=== PATIENT | male | born 1945 | race Hispanic/Latino ===

== ENCOUNTER → 2018-02-13 | Outpatient (CLI) | payer OTHER ==
[~2018-02-13] MED LIST: ASPI-555 PO; ATOR40TA71 PO; CLOP75TA14 PO; FERR325T21 PO; FOLI0.8T PO; FURO40TA5 PO; HYDR500C2 PO; METO50TA18 PO; OMEP20CA10 PO; POTA20TA82 PO; SPIR25TA6 PO
== END | disposition home or self-care (01) ==
LOC: SHCH 11:47
PROVIDERS: ATTEND Internal Medicine Cardiovascular Disease
DX: I25.2 Old myocardial infarction (principal); R60.9 Edema, unspecified; I35.8 Other nonrheumatic aortic valve disorders
CPT/HCPCS: 93306

== ENCOUNTER 2018-06-10 17:33 | Inpatient (IN) | payer OTHER ==
[~2018-06-10] VITALS: Ht 170.2 cm; Wt 78.1 kg
[~2018-06-10 17:33] MED LIST changes: +OMEP-50 PO; -OMEP20CA10 PO
[2018-06-10] MEDS ORDERED: FUROSEMIDE 10 MG/ML 2ML VIAL ONE (18:00)
[2018-06-10 18:22] LABS: BASOPHILS % (AUTO) 0.4 % (0.0-5.0); EOSINOPHILS % (AUTO) 1.6 % (0.0-8.0); HEMATOCRIT 26.5 % (42-54); LYMPHOCYTES % (AUTO) 5.9 % (21.0-51.0); MEAN CORPUSCULAR HEMOGLOBIN 17.6 pg (27.0-33.0); MEAN CORPUSCULAR HGB CONC 30.9 g/dL (32.0-36.0); MONOCYTES % (AUTO) 7.5 % (3.0-13.0); NEUTROPHILS % (AUTO) 84.6 % (40.0-77.0); NUCLEATED RED BLOOD CELLS 0.1 % (0.0-0.19); RED BLOOD CELL COUNT(AUTO) 4.66 MIL/uL (4.50-6.20); RED CELL DISTRIBUTION WIDTH 19.8 % (11.0-15.5); WHITE BLOOD COUNT (AUTO) 20.5 K/uL (4.8-10.8)
[2018-06-10 18:29] LABS: PLATELET COUNT (AUTO) 939 K/uL (130-400)
[2018-06-10 18:34] LABS: INR 1.3 (0.85-1.15); PARTIAL THROMBOPLASTIN TIME 37.6 SEC (26.3-35.5); PROTHROMBIN TIME 13.6 SEC (9.6-11.6)
[2018-06-10 18:43] LABS: B-TYPE NATRIURETIC PEPTIDE 550 pg/mL (0-100)
[2018-06-10 18:45] LABS: ALBUMIN 2.7 g/dL (3.5-5.0); BILIRUBIN,TOTAL 3.6 mg/dL (0.2-1.0); CREATININE 1.4 mg/dL (0.5-1.5); POTASSIUM 5.5 mmol/L (3.5-5.1); TOTAL PROTEIN, SERUM 6.8 g/dL (6.0-8.3)
[2018-06-10 18:56] LABS: PLATELET MORPHOLOGY COMMENT MARKED INCREASE
[2018-06-10 19:28] LABS: APPEARANCE,URINE Clear (CLEAR); BILIRUBIN,URINE Small (NEGATIVE); COLOR,URINE Dark Yellow (YELLOW); GLUCOSE, URINE (UA) Negative (NEGATIVE); KETONES,URINE Negative (NEGATIVE); LEUKOCYTE ESTERASE ,URINE Negative (NEGATIVE); NITRATE,URINE Negative (NEGATIVE); OCCULT BLOOD,URINE Negative (NEGATIVE); PROTEIN,URINE Negative (NEGATIVE)
[2018-06-10] MEDS ORDERED: ACETAMINOPHEN 325 MG TAB PO PRN (19:30)
[2018-06-10] MEDS ORDERED: ONDANSETRON HCL 4 MG/2 ML VIAL IV PRN (19:30)
[2018-06-10] MEDS ORDERED: ACETAMINOPHEN EXTRA STRENGTH 500 MG TABLET PO PRN (19:30)
[2018-06-10] MEDS ORDERED: GLUCAGON 1MG KIT 1 MG ML IM PRN (19:30)
[2018-06-10] MEDS ORDERED: DEXTROSE 50%-WATER 50 ML DISP.SYRIN IV PRN (19:30)
[2018-06-10] MEDS ORDERED: SODIUM CHLORIDE 1,000 MG TAB PO ONE (19:30)
[2018-06-10] MEDS ORDERED: LORAZEPAM 2 MG/ML 1 ML VIAL IVP PRN ×4 (19:30)
[2018-06-10] MEDS ORDERED: PROMETHAZINE HCL 25 MG TABLET PO PRN (19:30)
[2018-06-10] MEDS ORDERED: CHLORDIAZEPOXIDE HCL 25 MG CAP PO PRN ×4 (19:30)
[2018-06-10] MEDS ORDERED: NITROGLYCERIN 0.4 MG SL TAB SL PRN (19:30)
[2018-06-10] MEDS ORDERED: MAGNESIUM 2GM PREMIX 50ML 50 ML IV PRN (19:30)
[2018-06-10 19:35] LABS: AMPHET/METH SCREEN,URINE NEGATIVE (NEGATIVE); BARBITURATE SCREEN, URINE NEGATIVE (NEGATIVE); BENZODIAZEPINES SCREEN,URINE NEGATIVE (NEGATIVE); CANNABINOID SCREEN,URINE NEGATIVE (NEGATIVE); COCAINE SCREEN,URINE NEGATIVE (NEGATIVE); OPIATE SCREEN,URINE NEGATIVE (NEGATIVE); PHENCYCLIDINE SCREEN,URINE NEGATIVE (NEGATIVE)
[2018-06-10] MEDS ORDERED: LACTULOSE 20 GM/30 ML UDCUP PO ONE (19:45)
[2018-06-10] MEDS ORDERED: ZOSYN 3.375GM+NS 50ML 50 ML IV SCH (19:45)
[2018-06-10 19:49] LABS: PHOSPHORUS 4.8 mg/dL (2.5-4.9)
[2018-06-10 19:51] LABS: MUCUS,URINE Rare LPF (None Seen)
[2018-06-10 19:52] LABS: BACTERIA,URINE Few /HPF (None Seen); RBC,URINE 0-1 /HPF (0-1); WBC,URINE 0-1 /HPF (0-1)
[2018-06-10 19:56] LABS: HEMOGLOBIN A1C 7.4 % (4.0-6.0)
[2018-06-10 20:02] LABS: ALCOHOL, BLOOD < 3 mg/dL (0-10)
[2018-06-10] MEDS ORDERED: SODIUM CHLORIDE 1,000 MG TAB ONE (20:13)
[2018-06-10 20:23] LABS: % IRON SATURATION 2.1 % (30-44)
[2018-06-10] MEDS: FUROSEMIDE 10 MG/ML 4ML VIAL IVP SCH (21:00)
[2018-06-10] MEDS: INSULIN HUMULIN R 100 UNIT/ML 3ML SQ SCH (21:00)
[2018-06-10] MEDS ORDERED: FUROSEMIDE 10 MG/ML 4ML VIAL ONE (21:07)
[2018-06-10 21:39] VITALS: BP 120/64
[2018-06-10] MEDS ORDERED: GUAI100S13 PO (21:44)
[2018-06-10] MEDS ORDERED: FLUT16H NS (21:44)
[2018-06-10] MEDS ORDERED: LACTULOSE 20 GM/30 ML UDCUP ONE ×2 (22:19→22:20)
[2018-06-10] MEDS: ZOSYN 3.375GM+NS 50ML 50 ML IV SCH (22:22)
[2018-06-10] MEDS: FAMOTIDINE 20MG TAB 20 MG TAB PO SCH (22:22)
--- NOTE | 2018-06-10 22:35 | NUR ---
RECEIVED PATIENT, PATIENT ORIENTATED TO CALL BOO, AND ROOM. CALL BOO WITHIN REACH.
[2018-06-10 23:27] VITALS: BP 107/45
[2018-06-11] VITALS (23 sets, daily range): BP systolic 82–110; BP diastolic 34–81
[2018-06-11 01:07] LABS: CREATININE 1.4 mg/dL (0.5-1.5); POTASSIUM 4.8 mmol/L (3.5-5.1); TROPONIN I 0.08 ng/mL (0.00-0.06)
--- NOTE | 2018-06-11 01:26 | NUR ---
ALFREDO RAMÍREZ PAGED WITH CHLORIDE RESULT, ON RETURN CALL DARRELL FUENTES ADVISED OF CHLORIDE LEVEL, RECEIVED ORDER TO TRANSFER TO ICU, CONSTRUCTION MGR AWARE OF TRANSFER ORDER.
[2018-06-11] MEDS ORDERED: SODIUM CHLORIDE 3% 500 ML ONE (01:41)
[2018-06-11] MEDS ORDERED: SODIUM CHLORIDE 3% 500 ML SIVP SCH (01:45)
--- NOTE | 2018-06-11 02:23 | NUR ---
RECEIVED FROM 228 INTO ICU 215 LETHARGIC, AROUSABLE, ORIENTED X2 TO PERSON & PLACE. REORIENTED TO DATE AND TIME. NO DISTRESS NOTED. UNLABORED RESPIRATIONS. BEDSIDE MONITORING INITIATED. SINUS RHYTHM HR 66. O2 SAT88% ON ROOM AIR. PLACED ON 2L NC AND O2 SAT INCREASED TO 97%. DENIES PAIN AT THIS TIME. BLE WITH EDEMA 3+. 3% NS 21ML/HR INFUSING VIA PIV. INSTRUCTED ON PLAN OF CARE. PATIENT DOES NOT APPEAR INTERESTED. HIGH RISK FOR FALLS. TURNED ON BED ALARM, BLINDS OPEN, DOOR AJAR, ROOM IN FRONT OF NURSE'S STATION. SCD'S TO BLE'S.
--- NOTE | 2018-06-11 03:24 | NUR ---
IRMA DANIELS NP HERE TO SEE PT UPDATED.
[2018-06-11] MEDS: ZOSYN 3.375GM+NS 50ML 50 ML IV SCH ×3 (05:45→21:01)
[2018-06-11] MEDS: INSULIN HUMULIN R 100 UNIT/ML 3ML SQ SCH ×4 (05:55→20:47)
[2018-06-11 06:31] LABS: MEAN CORPUSCULAR HEMOGLOBIN 17.8 pg (27.0-33.0); MEAN CORPUSCULAR HGB CONC 31.6 g/dL (32.0-36.0); MEAN CORPUSCULAR VOLUME 56.1 fL (79-99); NUCLEATED RED BLOOD CELLS 0.1 % (0.0-0.19); RED BLOOD CELL COUNT(AUTO) 4.09 MIL/uL (4.50-6.20); RED CELL DISTRIBUTION WIDTH 19.2 % (11.0-15.5); WHITE BLOOD COUNT (AUTO) 16.4 K/uL (4.8-10.8)
[2018-06-11 07:24] LABS: PLATELET COUNT (AUTO) 758 K/uL (130-400)
--- NOTE | 2018-06-11 07:38 | NUR ---
PT RECEIVED IN BED, AAOX2 TO PERSON AND PLACE, REORIENTED TO DATE AND TIME. SR UP X4, TELE WITH SR 68. CONT WITH 3 % NACL @ 21ML/HR WITH SERIAL BMP LABS. NO S/S OF ETOH WITHDRAWAL AT THIS TIME. PENDING CONSULT WITH NEPHROLOGY AND STOOL FOR OB. WILL CONT TO MONITOR, CALL BOO IS WITHIN REACH.
[2018-06-11 08:05] LABS: TROPONIN I 0.15 ng/mL (0.00-0.06)
[2018-06-11] MEDS: THIAMINE HCL 100 MG/ML 2ML VIAL IM SCH (08:12)
[2018-06-11] MEDS: LACTULOSE 20 GM/30 ML UDCUP PO SCH ×2 (08:12→21:01)
[2018-06-11] MEDS: MULTIVITAMIN TABLET PO SCH (08:12)
[2018-06-11] MEDS: FAMOTIDINE 20MG TAB 20 MG TAB PO SCH ×2 (08:12→21:02)
[2018-06-11] MEDS: FOLIC ACID 1 MG TABLET PO SCH (08:13)
[2018-06-11 08:27] LABS: ALBUMIN 2.4 g/dL (3.5-5.0); BILIRUBIN,TOTAL 3.1 mg/dL (0.2-1.0); CREATININE 1.4 mg/dL (0.5-1.5); MAGNESIUM 1.8 mg/dL (1.80-2.40); PHOSPHORUS 4.9 mg/dL (2.5-4.9); POTASSIUM 4.6 mmol/L (3.5-5.1); TOTAL PROTEIN, SERUM 5.9 g/dL (6.0-8.3)
[2018-06-11 08:29] LABS: EOSINOPHILS % (MANUAL) 3 % (1-6); LYMPHOCYTES % (MANUAL) 6 % (22-44); MAN.DIFF COMMENT-IMPRESSION MANUAL DIFFERENTIAL; MONOCYTES % (MANUAL) 4 % (2-9); SEGMENTED NEUTROPHILS % 87 % (40-70)
--- NOTE | 2018-06-11 09:13 | NUR ---
MD ROUNDS DR. LUCIEN NOBLE IN TO SEE PATIENT. NEW ORDERS RECEIVED TO BE CARRIED OUT.
[2018-06-11] MEDS: FUROSEMIDE 10 MG/ML 4ML VIAL IVP SCH (11:23)
[2018-06-11 11:42] LABS: CREATININE 1.4 mg/dL (0.5-1.5)
--- NOTE | 2018-06-11 13:33 | NUR ---
JULIUS PLAN PATIENT SLEEPING CM TO FOLLOW UP. Addendum: 06/11/18 at 1334 by ALYSHA TORIBIO RN CM Amended: Links added.
--- NOTE | 2018-06-11 13:45 | NUR ---
Nutrition Intervention: Nutrition notification for alcohol abuse, alb 2.7, BMI 24.21. Pt admitted for hyponatremia, thrombocytosis, hyperammonia. Pt with PMB of alcohol dependence, alcoholic liver cirrhosis. Current diet order: CC75gm, 1500ml fluid restriction. Pertinent medication: B1, Folic acid, multivitamin. Pt's BMI readjusted to 27.3. Current Alb2.4-decreased. Recommendations: Recommend low protein diet therapy for appropriate diet placement. Continue B1, folic acid and multivitamin supplementation. Consult RD as nutrition concerns arise. Addendum: 06/11/18 at 1556 by [address] CHILDRESS RD RD Amended: Links added.
[2018-06-11 15:02] LABS: CREATININE 1.4 mg/dL (0.5-1.5); POTASSIUM 3.6 mmol/L (3.5-5.1)
[2018-06-11 19:15] LABS: CREATININE 1.5 mg/dL (0.5-1.5); POTASSIUM 3.8 mmol/L (3.5-5.1)
--- NOTE | 2018-06-11 19:30 | NUR ---
ASSESSMENT PT RESTING QUIETLY IN BED, FAMILY AT BEDSIDE, PT AAO, FOLLOWS COMMANDS, O2 2L NC, NSR. QUESTIONS ASKED AND ANSWERED. CALLBELL REVIEWED AND WITHIN REACH, WHITE BOARD FILLED OUT, ASSESSMENT COMPLETED, SEE FLOW SHEET.
[2018-06-11] MEDS: SODIUM BICARBONATE 650 MG TAB PO SCH (21:02)
[2018-06-11] MEDS ORDERED: COMPOUND IV MISC 1 EACH IVSOLN MISC PRN (22:00)
[2018-06-11 22:44] LABS: CREATININE 1.5 mg/dL (0.5-1.5); POTASSIUM 3.6 mmol/L (3.5-5.1)
--- NOTE | 2018-06-11 23:00 | NUR ---
ASSESSMENT PT RESTING QUIETLY IN BED, AROUSES EASILY, FOLLOWS COMMANDS, O2 2L NC, NSR. QUESTIONS ASKED AND ANSWERED. CALLBELL WITHIN REACH. ASSESSMENT COMPLETED, SEE FLOW SHEET.
[2018-06-12] VITALS (16 sets, daily range): BP systolic 93–118; BP diastolic 41–63
[2018-06-12 02:44] LABS: CREATININE 1.4 mg/dL (0.5-1.5); POTASSIUM 3.8 mmol/L (3.5-5.1)
--- NOTE | 2018-06-12 03:00 | NUR ---
ASSESSMENT PT RESTING QUIETLY IN BED. PT AROUSES EASILY AND RESPONDS APPROPRIATELY, FOLLOWS COMMANDS, O2 2L NC, NSR. CALLBELL WITHIN REACH. ASSESSMENT COMPLETED, SEE FLOW SHEET.
[2018-06-12] MEDS: INSULIN HUMULIN R 100 UNIT/ML 3ML SQ SCH ×4 (05:55→21:00)
[2018-06-12] MEDS: ZOSYN 3.375GM+NS 50ML 50 ML IV SCH ×3 (06:00→22:10)
[2018-06-12 06:06] LABS: HEMATOCRIT 24.5 % (42-54); MEAN CORPUSCULAR HEMOGLOBIN 17.7 pg (27.0-33.0); MEAN CORPUSCULAR HGB CONC 31.1 g/dL (32.0-36.0); MEAN CORPUSCULAR VOLUME 56.7 fL (79-99); RED BLOOD CELL COUNT(AUTO) 4.31 MIL/uL (4.50-6.20); RED CELL DISTRIBUTION WIDTH 19.5 % (11.0-15.5); WHITE BLOOD COUNT (AUTO) 15.6 K/uL (4.8-10.8)
[2018-06-12 06:21] LABS: CREATININE 1.3 mg/dL (0.5-1.5); PHOSPHORUS 4.3 mg/dL (2.5-4.9); POTASSIUM 3.7 mmol/L (3.5-5.1)
[2018-06-12 06:22] LABS: % IRON SATURATION 2.5 % (30-44)
[2018-06-12 06:25] LABS: PLATELET COUNT (AUTO) 802 K/uL (130-400)
--- NOTE | 2018-06-12 06:49 | NUR ---
REPORT REPORT GIVEN TO TRISH REYES.
--- NOTE | 2018-06-12 07:00 | NUR ---
RECEIVED PATIENT IN BED, ASLEEP, AWOKE TO VERBAL STIMULI. PT IS ALERT TO SELF, PLACE AND YEAR. NO ETOH WITHDRAWALS NOTED. POC DISCUSSED WITH PATIENT. TELE WITH SR 80s. CALL BOO IS WITHIN REACH, WILL CONT TO MONITOR CLOSELY.
--- NOTE | 2018-06-12 08:40 | NUR ---
ROUNDS DR. LUCIEN NOBLE IN TO SEE PATIENT. NO NEW ORDERS AT THIS TIME. CONT WITH FLUID RESTRICTION AND INSTRUCTED PATIENT HE NEEDS TO STOP DRINKING ALCOHOL.
[2018-06-12] MEDS: FOLIC ACID 1 MG TABLET PO SCH (09:07)
[2018-06-12] MEDS: FAMOTIDINE 20MG TAB 20 MG TAB PO SCH ×2 (09:07→22:10)
[2018-06-12] MEDS: ENOXAPARIN SODIUM 30 MG/0.3 ML SQ SCH (09:07)
[2018-06-12] MEDS: MULTIVITAMIN TABLET PO SCH (09:07)
[2018-06-12] MEDS: THIAMINE HCL 100 MG/ML 2ML VIAL IM SCH (09:07)
[2018-06-12] MEDS: SODIUM BICARBONATE 650 MG TAB PO SCH ×2 (09:08→22:11)
[2018-06-12] MEDS: LACTULOSE 20 GM/30 ML UDCUP PO SCH ×2 (09:08→22:10)
[2018-06-12] MEDS: IRON SUCROSE COMPLEX 100 MG in SODIUM CHLORIDE 0.9% 50 ML IV SCH (12:24)
--- NOTE | 2018-06-12 12:37 | NUR ---
MD ROUNDS DR. ESCOBAR IN TO SEE PATIENT. MD SPOKE WITH PATIENT AND SON. POC DISCUSSED, PHYSICAL THERAPY ORDERED AND PATIENT INSTRUCTED TO STOP ETOH CONSUMPTION. SON INFORMED DR. ESCOBAR THAT PATIENT IS SEEN BY DR. PARHAM. HE INFORMED US THAT HE HAS BEEN IN CONTACT WITH HOSPICE STAFF.
--- NOTE | 2018-06-12 15:18 | NUR ---
PT TRANSFERRED TO ROOM 414 ALONG WITH ALL BELONGINGS. REPORT WAS GIVEN TO LONNIE REYES. PT TRANSFERRED IN STABLE CONDITION.
--- NOTE | 2018-06-12 15:53 | NUR ---
DC PLAN VISITED WITH PATIENT. PATIENT LIVES WITH SON. INDEPENDENT ABLE TO PERFORM ADL'S. PATIENT HAS NO SERVICES OR DME'S. FEELS SAFE TO RETURN HOME. ALCOHOL PATIENT NOT INTERESTED IN QUITTING SAYS HAS TRIED BEFORE TO MEETINGS DID NOT WORK. Addendum: 06/12/18 at 1555 by ALYSHA TORIBIO RN CM Amended: Links added.
[2018-06-13 03:00] VITALS: BP 120/59
[2018-06-13] MEDS: INSULIN HUMULIN R 100 UNIT/ML 3ML SQ SCH ×4 (06:21→20:53)
[2018-06-13] MEDS: ZOSYN 3.375GM+NS 50ML 50 ML IV SCH ×3 (06:22→22:06)
[2018-06-13 08:08] VITALS: BP 111/54
--- NOTE | 2018-06-13 09:20 | NUR ---
[facility] spoke to pt's son Chay Montenegro. Per son, pt was on services with [facility] and they would like to resume this [place]. Discussed OOHDNR, son states pt refused to sign, pt wanting CPR. Son gave verbal consent for referral back to [facility]. Antolin spoke to Sumaya at [facility] and verified pt was on services. Per [facility] DME still in home and pt will need face to face before they can accept back to their services. Per nurse Wright, pt has no dc order yet.[facility] to set up face to face for today. Antolin faxed pt info to [facility] office. DCP pending face to face and dc order
[2018-06-13] MEDS ORDERED: FOLIC ACID 1 MG TABLET ONE (10:36)
[2018-06-13] MEDS: LACTULOSE 20 GM/30 ML UDCUP PO SCH ×2 (10:40→20:31)
[2018-06-13] MEDS: MULTIVITAMIN TABLET PO SCH (10:40)
[2018-06-13] MEDS: SODIUM BICARBONATE 650 MG TAB PO SCH ×2 (10:40→20:31)
[2018-06-13] MEDS: FAMOTIDINE 20MG TAB 20 MG TAB PO SCH ×2 (10:40→20:31)
[2018-06-13] MEDS: FOLIC ACID 1 MG TABLET PO SCH (10:40)
[2018-06-13] MEDS: ENOXAPARIN SODIUM 30 MG/0.3 ML SQ SCH (10:46)
[2018-06-13 11:55] VITALS: BP 96/46
[2018-06-13] MEDS: IRON SUCROSE COMPLEX 100 MG in SODIUM CHLORIDE 0.9% 50 ML IV SCH (12:57)
[2018-06-13] MEDS: THIAMINE HCL 100 MG/ML 2ML VIAL IM SCH (12:57)
--- NOTE | 2018-06-13 13:16 | NUR ---
DCP HOME WITH [facility] contacted by nurse Adriana, pt has dc orders. Antolin called Sumaya at [facility] and notified of dc order. [facility]aya has informed [facility] that face to face is needed for acceptance back to hospice. Acceptance pending f/f eval. CM to arrange transport home
[2018-06-13 16:37] VITALS: BP 112/65
--- NOTE | 2018-06-13 17:05 | NUR ---
DCP CHANGED: [facility] contacted by [place], son has changed mind and wants NH placement in [place] [facility]. Son agreeable to [facility] and continue with [facility]. Cm got consent signed. Antolin notified Sumaya at [facility] in delay of dc because of change and pending [facility] auth. Antolin spoke to Sumaya at [facility] and she is cking if there is a [facility] bed. [facility] complete and Antolin will send referral in am once bed availability is known Order pending for NH placement and MD documentation of life expectancy
--- NOTE | 2018-06-13 17:11 | NUR ---
[facility] recd call from [facility], they have a [facility] available. Antolin to make referral in am
[2018-06-13 19:20] VITALS: BP 101/47
[2018-06-13 23:56] VITALS: BP 106/52
[2018-06-14 03:28] VITALS: BP 115/51
[2018-06-14 04:14] LABS: HEMATOCRIT 23.5 % (42-54); MEAN CORPUSCULAR HGB CONC 31.2 g/dL (32.0-36.0); MEAN CORPUSCULAR VOLUME 57.5 fL (79-99); NUCLEATED RED BLOOD CELLS 0.1 % (0.0-0.19); RED CELL DISTRIBUTION WIDTH 19.8 % (11.0-15.5); WHITE BLOOD COUNT (AUTO) 14.9 K/uL (4.8-10.8)
[2018-06-14 04:18] LABS: PLATELET COUNT (AUTO) 806 K/uL (130-400)
[2018-06-14 04:35] LABS: CREATININE 0.9 mg/dL (0.5-1.5); POTASSIUM 3.8 mmol/L (3.5-5.1)
[2018-06-14] MEDS: ZOSYN 3.375GM+NS 50ML 50 ML IV SCH ×3 (05:18→21:37)
[2018-06-14] MEDS: INSULIN HUMULIN R 100 UNIT/ML 3ML SQ SCH ×4 (06:22→21:00)
[2018-06-14 08:00] VITALS: BP 108/50
--- NOTE | 2018-06-14 08:41 | NUR ---
DCP: [facility] with [facility] Antolin faxed referrals to Maida at [facility] and Sumaya at [facility] for review. Waiting for response
[2018-06-14] MEDS: LACTULOSE 20 GM/30 ML UDCUP PO SCH ×2 (10:06→21:36)
[2018-06-14] MEDS: ENOXAPARIN SODIUM 30 MG/0.3 ML SQ SCH (10:06)
[2018-06-14] MEDS: MULTIVITAMIN TABLET PO SCH (10:06)
[2018-06-14] MEDS: FAMOTIDINE 20MG TAB 20 MG TAB PO SCH ×2 (10:06→21:36)
[2018-06-14 11:57] VITALS: BP 99/46
--- NOTE | 2018-06-14 14:22 | NUR ---
[facility] f[facility]u [facility] left message for [facility] at [facility] to f/u on status of referral.
[2018-06-14] MEDS: IRON SUCROSE COMPLEX 100 MG in SODIUM CHLORIDE 0.9% 50 ML IV SCH (15:18)
--- NOTE | 2018-06-14 15:34 | NUR ---
Nutrition f/u: Pt continues on CCD 75gm diet, 1500ml fluid restriction, low protein. Pt reports no nutritional questions or concerns with n/v/d, chewing or swallowing difficulties. Pt reports good oral intake. Recommendations: Continue current diet therapy. Consult RD as nutrition concerns arise. Addendum: 06/14/18 at 15[address] RD Amended: Links added.
[2018-06-14 16:00] VITALS: BP 113/47
--- NOTE | 2018-06-14 16:38 | NUR ---
[facility] f/u Antolin recd call from Maida, case still in process.
[2018-06-14 19:46] VITALS: BP 124/59
[2018-06-14 23:36] VITALS: BP 91/52
[2018-06-15 03:31] VITALS: BP 100/57
[2018-06-15 04:24] LABS: HEMATOCRIT 25.1 % (42-54); MEAN CORPUSCULAR HEMOGLOBIN 17.5 pg (27.0-33.0); MEAN CORPUSCULAR HGB CONC 30.3 g/dL (32.0-36.0); MEAN CORPUSCULAR VOLUME 57.8 fL (79-99); RED BLOOD CELL COUNT(AUTO) 4.35 MIL/uL (4.50-6.20); RED CELL DISTRIBUTION WIDTH 19.7 % (11.0-15.5); WHITE BLOOD COUNT (AUTO) 15.4 K/uL (4.8-10.8)
[2018-06-15 04:28] LABS: PLATELET COUNT (AUTO) 887 K/uL (130-400)
[2018-06-15 04:34] LABS: CREATININE 0.9 mg/dL (0.5-1.5); POTASSIUM 3.8 mmol/L (3.5-5.1)
[2018-06-15] MEDS: ZOSYN 3.375GM+NS 50ML 50 ML IV SCH ×3 (05:52→21:09)
[2018-06-15] MEDS: INSULIN HUMULIN R 100 UNIT/ML 3ML SQ SCH ×4 (05:52→21:17)
[2018-06-15 08:00] VITALS: BP 108/51
--- NOTE | 2018-06-15 08:00 | NUR ---
Pt. on lactulose Addendum: 06/15/18 at 1310 by HIREN CASTILLO RN RN Amended: Links added.
[2018-06-15] MEDS ORDERED: ENOXAPARIN SODIUM 30 MG/0.3 ML SQ SCH (09:00)
[2018-06-15] MEDS: IRON SUCROSE COMPLEX 100 MG in SODIUM CHLORIDE 0.9% 50 ML IV SCH ×2 (09:00→13:14)
--- NOTE | 2018-06-15 10:00 | NUR ---
CM NOTE AND REFERRAL CHANGE ADVISED BY FAMILY AND MD THAT PT REQUEST A CHANGE TO SNF. PT WILL STILL HAVE REFERRAL TO SAME FACLITY-BUT SERVICES WILL BE UNDER [employer] NOT [facility].PT/FAMILY IN AGREEMENT, [facility] HERE TO ASSESS PT, INFO SENT, PASSR PENDING Addendum: 06/15/18 at 1945 by DEUCE FARAH RN CM Amended: Links added.
[2018-06-15] MEDS: FAMOTIDINE 20MG TAB 20 MG TAB PO SCH ×2 (10:04→21:07)
[2018-06-15] MEDS: MULTIVITAMIN TABLET PO SCH (10:04)
[2018-06-15] MEDS: LACTULOSE 20 GM/30 ML UDCUP PO SCH ×2 (10:04→21:07)
[2018-06-15] MEDS: ENOXAPARIN SODIUM 40 MG/0.4 ML SYRINGE SQ SCH (10:05)
[2018-06-15] MEDS ORDERED: ALPR0.5T PO (11:18)
--- NOTE | 2018-06-15 11:46 | NUR ---
[facility] REFERRAL CANCELLED Antolin recd call from Maida, [facility] had not recd any info from [facility] for placement. Their paperwork must be recd before noon or referral will wait till next week. Antolin spoke to Sumaya who states no info sent to [facility] because family insistent that pt get PT so referral now for SNF. Antolin called Maida back and informed on SNF. Pt is not service connected therefore will need to go SNF under Medicare.
[2018-06-15 12:00] VITALS: BP 108/51
[2018-06-15 16:00] VITALS: BP 104/48
[2018-06-15 20:00] VITALS: BP 122/56
[2018-06-16] VITALS: BP 104/48
[2018-06-16 04:00] VITALS: BP 114/60
[2018-06-16 04:15] LABS: BASOPHILS % (AUTO) 1.1 % (0.0-5.0); EOSINOPHILS % (AUTO) 7.2 % (0.0-8.0); HEMATOCRIT 25.1 % (42-54); LYMPHOCYTES % (AUTO) 10.9 % (21.0-51.0); MEAN CORPUSCULAR HEMOGLOBIN 18.3 pg (27.0-33.0); MEAN CORPUSCULAR HGB CONC 31.2 g/dL (32.0-36.0); MEAN CORPUSCULAR VOLUME 58.6 fL (79-99); MONOCYTES % (AUTO) 12.4 % (3.0-13.0); NEUTROPHILS % (AUTO) 68.4 % (40.0-77.0); RED BLOOD CELL COUNT(AUTO) 4.27 MIL/uL (4.50-6.20); WHITE BLOOD COUNT (AUTO) 13.7 K/uL (4.8-10.8)
[2018-06-16 04:17] LABS: PLATELET COUNT (AUTO) 842 K/uL (130-400)
[2018-06-16 04:34] LABS: CREATININE 0.9 mg/dL (0.5-1.5); POTASSIUM 3.8 mmol/L (3.5-5.1)
[2018-06-16] MEDS: ZOSYN 3.375GM+NS 50ML 50 ML IV SCH ×3 (05:14→21:30)
[2018-06-16] MEDS: INSULIN HUMULIN R 100 UNIT/ML 3ML SQ SCH ×3 (05:57→21:37)
[2018-06-16 08:00] VITALS: BP 105/49
[2018-06-16] MEDS: IRON SUCROSE COMPLEX 100 MG in SODIUM CHLORIDE 0.9% 50 ML IV SCH (09:12)
[2018-06-16] MEDS: ENOXAPARIN SODIUM 40 MG/0.4 ML SYRINGE SQ SCH (09:13)
[2018-06-16] MEDS: LACTULOSE 20 GM/30 ML UDCUP PO SCH ×2 (09:13→21:30)
[2018-06-16] MEDS: MULTIVITAMIN TABLET PO SCH (09:13)
[2018-06-16] MEDS: FAMOTIDINE 20MG TAB 20 MG TAB PO SCH ×2 (09:13→21:30)
[2018-06-16 11:50] VITALS: BP 114/53
--- NOTE | 2018-06-16 12:23 | NUR ---
cm note spoke to ashly at [facility], and states pt not accepted yet, pt will need orders refaxed to them requesting snf for rehab. and they will need to submit to [facility] for approval probably no approval til monday when open.
[2018-06-16 16:00] VITALS: BP 136/62
[2018-06-16 20:13] VITALS: BP 123/59
[2018-06-17 00:33] VITALS: BP 106/53
[2018-06-17 03:54] VITALS: BP 110/56
[2018-06-17 04:27] LABS: BASOPHILS % (AUTO) 1.1 % (0.0-5.0); EOSINOPHILS % (AUTO) 5.5 % (0.0-8.0); HEMATOCRIT 23.7 % (42-54); LYMPHOCYTES % (AUTO) 12.3 % (21.0-51.0); MEAN CORPUSCULAR HEMOGLOBIN 18.3 pg (27.0-33.0); MEAN CORPUSCULAR HGB CONC 31.7 g/dL (32.0-36.0); MEAN CORPUSCULAR VOLUME 57.7 fL (79-99); MONOCYTES % (AUTO) 11.9 % (3.0-13.0); NEUTROPHILS % (AUTO) 69.2 % (40.0-77.0); RED BLOOD CELL COUNT(AUTO) 4.11 MIL/uL (4.50-6.20); RED CELL DISTRIBUTION WIDTH 21.1 % (11.0-15.5); WHITE BLOOD COUNT (AUTO) 14.7 K/uL (4.8-10.8)
[2018-06-17 04:36] LABS: CREATININE 0.9 mg/dL (0.5-1.5); PLATELET COUNT (AUTO) 790 K/uL (130-400); POTASSIUM 3.4 mmol/L (3.5-5.1)
[2018-06-17] MEDS: ZOSYN 3.375GM+NS 50ML 50 ML IV SCH ×3 (05:12→20:57)
[2018-06-17] MEDS: INSULIN HUMULIN R 100 UNIT/ML 3ML SQ SCH ×4 (05:53→20:35)
[2018-06-17 08:00] VITALS: BP 116/59
[2018-06-17] MEDS ORDERED: POTASSIUM CHLORIDE 20 MEQ ERTAB PO SCH (09:15)
[2018-06-17] MEDS: LACTULOSE 20 GM/30 ML UDCUP PO SCH ×2 (10:11→20:40)
[2018-06-17] MEDS: FAMOTIDINE 20MG TAB 20 MG TAB PO SCH ×2 (10:11→20:40)
[2018-06-17] MEDS: MULTIVITAMIN TABLET PO SCH (10:11)
[2018-06-17] MEDS: ENOXAPARIN SODIUM 40 MG/0.4 ML SYRINGE SQ SCH (10:11)
[2018-06-17 12:00] VITALS: BP 110/52
[2018-06-17 16:00] VITALS: BP 121/71
[2018-06-17 20:00] VITALS: BP 113/55
[2018-06-18] VITALS: BP 114/54
[2018-06-18 04:00] VITALS: BP 114/59
[2018-06-18 04:23] LABS: BASOPHILS % (AUTO) 0.6 % (0.0-5.0); EOSINOPHILS % (AUTO) 4.5 % (0.0-8.0); HEMATOCRIT 25.7 % (42-54); MEAN CORPUSCULAR HEMOGLOBIN 18.5 pg (27.0-33.0); MEAN CORPUSCULAR HGB CONC 31.8 g/dL (32.0-36.0); MEAN CORPUSCULAR VOLUME 58.3 fL (79-99); MONOCYTES % (AUTO) 12.2 % (3.0-13.0); NEUTROPHILS % (AUTO) 70.7 % (40.0-77.0); RED CELL DISTRIBUTION WIDTH 21.9 % (11.0-15.5); WHITE BLOOD COUNT (AUTO) 15.1 K/uL (4.8-10.8)
[2018-06-18 04:25] LABS: CREATININE 0.8 mg/dL (0.5-1.5); POTASSIUM 4.1 mmol/L (3.5-5.1)
[2018-06-18] MEDS: ZOSYN 3.375GM+NS 50ML 50 ML IV SCH ×2 (05:28→13:52)
[2018-06-18 05:29] LABS: PLATELET COUNT (AUTO) 854 K/uL (130-400)
[2018-06-18] MEDS: INSULIN HUMULIN R 100 UNIT/ML 3ML SQ SCH ×3 (06:15→16:30)
[2018-06-18 07:35] VITALS: BP 122/63
--- NOTE | 2018-06-18 08:00 | NUR ---
DR. ESCOBAR CALLED MD TO REPORT REPORTED WEIGHT GAIN OF 5.7 LBS OVERNIGHT. INFORMED MD PATIENTS NEEDS HOME MEDICATIONS, INCLUDING DIURETICS, THAT ARE PENDING TO BE REVIEWED AND RESUMED. ORDERS PLACED BY DR. ESCOBAR.
[2018-06-18] MEDS ORDERED: FUROSEMIDE 10 MG/ML 4ML VIAL IV SCH (08:15)
[2018-06-18] MEDS ORDERED: DEXAMETHASONE SOD PHOSPHATE 10MG/ML 1ML VIAL ONE (08:33)
[2018-06-18] MEDS ORDERED: LIDOCAINE PF 2% 5ML ABBOJECT ONE (08:33)
[2018-06-18] MEDS ORDERED: ONDANSETRON HCL 4 MG/2 ML VIAL ONE (08:33)
[2018-06-18] MEDS ORDERED: PROPOFOL 10 MG/ML 20ML VIAL IV ONE (08:33)
[2018-06-18] MEDS ORDERED: MIDAZOLAM HCL 1 MG/ML 2ML VIAL ONE (08:33)
[2018-06-18] MEDS ORDERED: FENTANYL CITRATE PF 50 MCG/1 ML 2ML VIAL ONE (08:34)
[2018-06-18] MEDS ORDERED: ROPIVACAINE 0.5% 5MG/ML 30ML IJ ONE (08:38)
[2018-06-18] MEDS ORDERED: FUROSEMIDE 40 MG TABLET PO SCH (09:00)
[2018-06-18] MEDS ORDERED: SPIRONOLACTONE 25 MG TAB PO SCH (09:00)
[2018-06-18] MEDS: FAMOTIDINE 20MG TAB 20 MG TAB PO SCH (09:04)
[2018-06-18] MEDS: MULTIVITAMIN TABLET PO SCH (09:04)
[2018-06-18] MEDS: LACTULOSE 20 GM/30 ML UDCUP PO SCH (09:04)
[2018-06-18] MEDS: ENOXAPARIN SODIUM 40 MG/0.4 ML SYRINGE SQ SCH (09:25)
[2018-06-18 11:53] VITALS: BP 99/59
--- NOTE | 2018-06-18 12:55 | NUR ---
CM Note: [facility] Spoke to Glendy salazar/[facility], pt has ins auth and acceptance, pasrr received. Pt safe to transfer via transport van, primary nurse made aware to call facility before 5pm. Primary nurse aware. CM to cont to follow up.
--- NOTE | 2018-06-18 15:00 | NUR ---
[facility] CALLED [facility] [phone] TO ATTEMPT TO GIVE REPORT AND WAS TOLD NURSE WOULD CALL ME BACK WHEN READY TO GET REPORT. AWAITING CALLBACK.
--- NOTE | 2018-06-18 15:30 | NUR ---
DISCHARGE NURSE REPORT GIVEN TO STEVE VASQUEZ OF [facility] [phone]. STEVE ORDOÑEZ DID CLARIFY THAT SHE RECEIVED MED RECONCILIATION FORM. INFORMED STEVE VASQUEZ THAT RX FOR XANAX PLACED PATIENT CHART COPY. STEVE VASQUEZ TOLD ME THAT SHE WOULD NOTIFY [facility] PIPE INSULATOR HELPER TO LEGAL JOB TITLES PATIENT.
[2018-06-18 16:09] VITALS: BP 117/70
== END 2018-06-18 17:57 | DRG 682 ==
LOC: EDBD → EDH 17:33 → EDHIP 19:15 → 2DH 21:36 → 2CH 06-11 02:32 → 4CH 06-12 15:00
PROVIDERS: ADMIT Internal Medicine; ATTEND Internal Medicine
DX: N17.9 Acute kidney failure, unspecified (principal); G93.41 Metabolic encephalopathy; I50.31 Acute diastolic (congestive) heart failure; E87.1 Hypo-osmolality and hyponatremia; E72.20 Disorder of urea cycle metabolism, unspecified; E87.2 Acidosis; E44.0 Moderate protein-calorie malnutrition; D68.4 Acquired coagulation factor deficiency; K70.30 Alcoholic cirrhosis of liver without ascites; D50.9 Iron deficiency anemia, unspecified; F10.20 Alcohol dependence, uncomplicated; D72.829 Elevated white blood cell count, unspecified; E11.9 Type 2 diabetes mellitus without complications; E87.5 Hyperkalemia; E87.6 Hypokalemia; I11.0 Hypertensive heart disease with heart failure; Y90.0 Blood alcohol level of less than 20 mg/100 ml; I25.10 Atherosclerotic heart disease of native coronary artery without angina pectoris; W18.30XA Fall on same level, unspecified, initial encounter; I25.2 Old myocardial infarction; Z87.891 Personal history of nicotine dependence; Z91.19 Patient's noncompliance with other medical treatment and regimen; Z82.3 Family history of stroke; Z83.3 Family history of diabetes mellitus; Z82.49 Family history of ischemic heart disease and other diseases of the circulatory system; Y93.89 Activity, other specified; Y99.8 Other external cause status; Y92.009 Unspecified place in unspecified non-institutional (private) residence as the place of occurrence of the external cause; Z68.27 Body mass index [BMI] 27.0-27.9, adult
CPT/HCPCS: 36415; 71045; 80048; 80053; 80061; 80305; 81001; 82140; 82270; 82533; 82550; 82728; 82948; 83036; 83540; 83550; 83690; 83735; 83874; 83880; 83930; 83935; 84100; 84145; 84300; 84443; 84484; 85025; 85027; 85610; 85730; 86140; 87040; 87088; 93005; 93970; 97039; G0378; G0480; J1100; J1650; J1756; J1815; J1940; J2001; J2250; J2405; J2543; J2704; J2795; J3010; J3411; J3475; J3490